=== PATIENT | female | born 1960 | race Caucasian/White ===

== ENCOUNTER → 2017-05-15 | Outpatient (CLI) | payer BC ==
--- NOTE | 2017-05-15 11:28 | DI ---
US SOFT TISSUE HEAD/NECK,05/15/2017 8:55 AM: Clinical History: Right thyroid mass Previous Exam: None at this facility. Findings: Multiple grayscale and color Doppler sonographic images are obtained through the thyroid. The right thyroid lobe measures 4.7 x 1.9 x 1.9 cm and contains a large complex mass measuring 2.9 x 2.9 x 1.5 cm containing multiple cystic components within the right thyroid lobe. The thyroid isthmus measured 4 mm. The left thyroid lobe measures 3.9 x 1.2 x 1.9 cm with a hypoechoic nodule within the inferior pole o f the left lobe measuring less than 1 cm. Impression: Large 2.9 x 2.9 x 1.5 cm mass within the right thyroid lobe containing multiple cystic components. Re commend fine needle aspiration for further evaluation.
== END ==
LOC: US 08:47
PROVIDERS: ATTEND Nurse Practitioner Family
DX: E04.9 Nontoxic goiter, unspecified (principal)
CPT/HCPCS: 76536

== ENCOUNTER → 2017-05-23 | Outpatient (CLI) | payer BC ==
--- NOTE | 2017-05-23 12:23 | GEN.OPNOTE ---
Operative Note Surgery Date: 05/23/17 Preoperative Diagnosis: Right thyroid mass-cyst. Postoperative Diagnosis: Same. Procedure: Right thyroid FNA with ultrasound guidance. Surgeon: Cristian Farah MD Anesthesia Type: Local (1% Xylocaine) Estimated Blood Loss (mL): 1 Fluids: None Pathology: 2 air dried slides, 2 slides in Cytotec, and a needle wash were sent for pathologic analysis. Indications: Enlarging right thyroid mass. Ultrasound shows this to be cystic but with multiple septations. Findings: Cyst. Collapsed after aspiration. Complications: None. Operative Summary: I met the patient in the ultrasound suite. The radiologist was present for localizing the nodule. The neck was prepped in a sterile fashion. The skin was infiltrated with 1% plain Xylocaine. After the nodule was located I used a 5 mL syringe and a 22 gauge needle. Under ultrasound guidance a needle was passed into the nodule. Suction was applied. The needle was moved back and forth through the nodule obtaining a specimen. The nodule was also cystic and collapsed. I then removed the needle from the neck and the radiologist held pressure for 10 minutes. After he held pressure he did an ultrasound to assure no hematoma formation. An appropriate dressing was placed. I personally prepared the slides. I prepared both CytoLyt as well as air dried slides. Needle wash was done in CytoLyt. All specimens were labeled appropriately. I prepared the pathologic report and personally delivered the specimen to the lab. Patient tolerated the procedure well without complication. Will call the results of biopsies when available. We will plan an exam and ultrasound in 6 months time. Sooner if the nodule recurs.
--- NOTE | 2017-05-23 12:55 | DI ---
ULTRASOUND GUIDED FINE NEEDLE ASPIRATION OF THE THYROID, 05/23/2017 11:37 AM: Clinical History: Abnormal thyroid ultrasound. There is a complex nodule in the right lobe of the thy roid gland. Previous Exam: 05/15/2017. Operating Surgeon: Dr. Cristian Farah. Roofing Applicator: Dr. Barnes. Informed signed consent was obtained in the doctor's office prior to the procedure. A "time out" sess ion was performed to verify the patient's name and date of prior to initiating this procedure. The neck was prepped with ChloraPrep with orange tint. Sterile gel was used as the acoustical couplin g agent. 1% lidocaine without epinephrine was used for intradermal and subcutaneous local anesthesia. The fine needle was inserted once using US for localization, and multiple passes were performed with the FNA needle in the fluid component was aspirated. These attempts resulted in slide specimens bein g obtained. The slide specimens were hand carried by the surgeon to the lab for delivery to the [facility] facility. Hemostasis was achieved with direct compression. The patient was discharged from the X-ray Department in stable, unchanged condition. The patient was advised to watch for signs of a developing hematoma (including but not limited to swelling and pain in the neck region) as well as for signs of an infect ion (including but not limited to redness, swelling, fever). She was instructed to either contact the surgeon directly or to report to the Emergency Room immediately if problems arose. Reading: Successful and uncomplicated fine needle aspiration of the right lobe of the thyroid gland.
== END ==
LOC: US 11:19
PROVIDERS: ATTEND Surgery
DX: E04.1 Nontoxic single thyroid nodule (principal)
CPT/HCPCS: 76942

== ENCOUNTER 2017-09-26 15:25 | Inpatient (IN) ==
[2017-09-26] MEDS ORDERED: ONDANSETRON 4 MG/2 ML VIAL IVP ONE (15:50)
[2017-09-26] MEDS ORDERED: Sodium Chloride 0.9% 1,000 ML PRIMARY IV ONE (15:50)
--- NOTE | 2017-09-26 15:56 | PDOC ---
General Adult HPI - General Chief Complaint: Accidental Ingestion /Overdose Stated Complaint: accidental overdose Date Seen by Provider: 09/26/17 Time Seen by Provider: 15:50 Source: POSITIVE: Patient, Spouse Exam Limitations: POSITIVE: No limitations Nurse's Notes Reviewed & Considered: Yes - History of Present Illness Initial Comment: Patient comes in today stating she has overdosed on Seroquel. Patient was found to be somnolent by her who was contacted by a neighbor because the patient was not answering knocking on the door or her phone. Patient states she thinks she took too many Seroquel during the night. 5 200 mg tablets are missing. Patient does have a history of suicidal ideation 9 years ago. She denies suicidal ideation at this time. She is hypotensive with a blood pressure systolic of 72. Have you received a tetanus shot in the past 10 years?: Unknown Timing: REPORTS: Unknown Duration: Unknown Severity: Moderate Context: DENIES: None, Sitting, Standing, Activity, Emotional stress, Coughing, Recent Trauma, Recent Surgery, Sleep, Rest, Lifting, Turning, Bending, Fall, Near Fall, Other Modifying Factors: worse with: Nothing, Analgesics, Antacids, Breathing, Coughing, Defecating, Vomiting, Eating, Exercise, Lying down, Urinating, Palpation, Movement, Rest, Upright Position, Walking, Remaining Still, Other Similar Symptoms Previously: No Recent Care Received: REPORTS: Denies Any Prior Injuries Related to Current Complaint?: No - Patient Home Medications Home Medications: Home Medications Clonazepam 1 tab PO QD 07/24/11 Gabapentin 800 mg PO QID PRN tab 10/20/13 Omeprazole 1 cap PO BID cap 09/17/16 Amlodipine Besylate 10 mg ORAL QD #90 tab 11/24/16 Losartan Potassium [Cozaar] 50 mg ORAL BID #180 tab 11/24/16 Tramadol HCl [Ultram] 2 tab PO Q6H tab 05/20/17 Desvenlafaxine Succinate [Pristiq] 100 mg ORAL QD #90 tab 07/17/17 Oxycodone HCl/Acetaminophen [Endocet 10-325 Mg Tablet] 1 tab PO Q6H PRN #0 tab 07/17/17 Quetiapine Fumarate [Seroquel Xr] 200 mg PO QD #90 tab 07/17/17 Spironolactone 25 mg ORAL QD #90 tab 07/17/17 methylPREDNISolone Dose Pack [Medrol Dose Pack] 1 tab PO ASDIR #1 packet - Patient Allergies Allergies/Adverse Reactions: Allergies 3 Allergy/AdvReac Type Severity Reaction Status Date / Time No Known Drug Allergies Allergy NOT Verified 09/26/17 16:00 APPLICABLE ROS - Limitations ROS Limitations: No Limitations Constitution: REPORTS: Denies Symptoms Cardiovascular: REPORTS: Denies Cardiac Symptoms Respiratory: REPORTS: Denies Resp Symptoms Neurological: REPORTS: Denies Neuro Symptoms Gastrointestinal: REPORTS: Denies GI Symptoms Endocrine: REPORTS: Denies Symptoms Musculoskeletal: REPORTS: Denies MS Symptoms Genitourinary: REPORTS: Denies Symptoms Eyes: REPORTS: Denies Symptoms ENT: REPORTS: Denies Symptoms Skin: REPORTS: Denies Skin Symptoms Lympathic: REPORTS: Denies Lympathic Symptoms Immunologic: POSITIVE: Denies Symptoms Psychiatric: POSITIVE: Denies Psych Symptoms General Adult Exam - General Appearance General Appearance: POSITIVE: Alert, Cooperative, No Acute Distress, No Evidence of Trauma - HEENT HEENT: POSITIVE: Head Inspection Nml, Eyes Inspection Nml, Ears Inspection Nml, Nose Inspection Nml, Oral/Dental Inspect. Nml, Pharynx Inspect. Nml, PERRL, EOMI - Pupils Pupil Size: 4 mm: Bilateral - Neck Neck: POSITIVE: Normal Inspection - Respiratory Respiratory: POSITIVE: No Respiratory Distress, Breath Sounds Normal, Chest Non- Tender - Cardiovascular Cardiovascular: POSITIVE: Regular Rate & Rhythm, No Murmur, No Gallop, PMI Normal Peripheral Pulses: Radial (R): 4+ - Abdomen Abdomen: Soft: (All Quadrants), Normal Bowel Sounds: (All Quadrants), Denies Tenderness: (All Quadrants), No Splenomegaly: (All Quadrants), No Hepatomegaly: (All Quadrants), No Guarding: (All Quadrants), No Rebound: (All Quadrants), No Palpable Pulse: (All Quadrants), No Palpabale Mass: (All Quadrants), No Distention: (All Quadrants), No Rigidity: (All Quadrants) - Skin Skin: POSITIVE: Normal Color, Warm, Dry, No Rash - Extremities Extremity: Non-Tender: (All Extremities), Normal ROM: (All Extremities), Normal Inspection: (All Extremities), Pelvis Stable: (All Extremities) - Neurological / Psychological Neurological: POSITIVE: Oriented X3, Motor Normal, Sensation Normal Procedures - Laceration/Wound Repair Did patient have a laceration repair: No General Adult Progress - Results Reviewed by me Lab Results Reviewed by Me: Yes CBC and BMP: 09/26/17 15:50 09/26/17 15:50 EKG Interpreted/Reviewed By Me:: Yes EKG Interpretation:: POSITIVE: Normal Sinus Rhythm - Patient's Progress Pain Medication Addressed: POSITIVE: Not Applicable Status: POSITIVE: Improved MDM / ED Course: Patient was evaluated, an IV started, a bolus of normal saline was provided, blood drawn and sent to the lab for studies. Findings: UDS positive for tricyclic antidepressants and narcotics. CBC is unremarkable, CMP is also unremarkable. Urinalysis is negative. Assessment: Drug overdose, probable SSRI. Plan: Admission for observation and symptomatic treatment. Quality Measure Initiative: CP/AMI: POSITIVE: EKG CVA/Syncope: POSITIVE: EKG - Consult Consult (If Yes, Name of Consulting MD & Time Called): Yes (Dr. Serrano 1552 hrs) Consulting MD will see pt:: POSITIVE: [facility] Admit Counseled: POSITIVE: Patient, Family, RE: Lab Results, RE: DX Patient Care Time - Estimated PCT Patient Care Time (In Minutes): 20 Vital Signs - Recent Vital Signs Vital Signs: Vital Signs (Last 8 hours) Temp Pulse Pulse Resp BP Pulse Ox 09/26/17 16:08 83 09/26/17 16:00 97.0 F 81 20 71/47 91 09/26/17 15:25 97.0 F 89 20 72/58 92 - VS Reviewed Vital Signs Reviewed: Yes Discharge Clinical Impression: Drug overdose Discharge Disposition: Admit to Observation Condition: Stable
--- NOTE | 2017-09-26 16:08 | EKG ---
[address] [address] Measurements Intervals [place] Rate: 83 P: 43 RI: 199 QRS: -12 QRSD: 85 T: 38 QT: 358 QTc: 398 Interpretive Statements SINUS RHYTHM MINIMAL VOLTAGE CRITERIA FOR LVH, CONSIDER NORMAL VARIANT [MEETS CRITERIA IN ONE OF: R(aVL), S(V1), R(V5), R(V5/V6)+S(V1)] POSSIBLE ANTERIOR MYOCARDIAL INFARCTION [30 ms Q WAVE IN V3/V4, OR R < 0.2 mV IN V4], OF INDETERMINATE AGE No previous ECG available for comparison Electronically Signed On 09-27-17 08:45:15 [facility] by Holger Shaw MD [email or web address]
[2017-09-26 16:12] LABS: Hemoglobin [HGB] 14.5 g/dL (12.0-16.0); MEAN CORPUSCULAR HEMOGLOBIN 30.6 PG (27-31); MEAN CORPUSCULAR HGB CONC 32.2 g/dL (33-37); MEAN CORPUSCULAR VOLUME 94.9 FL (81-99); MEAN PLATELET VOLUME 9.8 FL (7.4-12.2); RED BLOOD COUNT 4.74 10^6/uL (4.20-5.40)
[2017-09-26] MEDS ORDERED: NORMAL SALINE 10 ML SYRINGE FLUSH IVP PRN ×2 (16:14→17:26)
[2017-09-26 16:35] LABS: PLATELET MORPHOLOGY COMMENT NORMAL MORPHOLOGY (NORM); RBC MORPHOLOGY COMMENT NORMAL MORPHOLOGY (NORM); WBC MORPHOLOGY COMMENT NORMAL MORPHOLOGY (NORM)
[2017-09-26 16:36] LABS: BAND NEUTROPHILS % 0 % (0-10); BASOPHILS % (MANUAL) 0 % (0-1); BLOOD UREA NITROGEN 18 mg/dL (7-22); BUN/CREATININE RATIO 11.25 (6-20); EOSINOPHILS % (MANUAL) 0 % (0-8); MONOCYTES % (MANUAL) 4 % (0-12); NEUTROPHILS % (MANUAL) 85 % (50-80)
[2017-09-26] MEDS: Sodium Chloride 0.9% 1,000 ML PRIMARY IV SCH ×4 (17:00→21:19)
[2017-09-26] MEDS ORDERED: CALCIUM CARBONATE 500 MG (TUMS) CHEWABLE TABLET PO PRN (17:26)
[2017-09-26] MEDS ORDERED: ONDANSETRON 4 MG/2 ML VIAL IVP PRN (17:26)
[2017-09-26] MEDS ORDERED: DOCUSATE 100 MG CAPSULE PO PRN (17:26)
[2017-09-26] MEDS ORDERED: LIDOCAINE W/ SODIUM BICARB 0.5 ML SYR SUBD PRN (17:26)
--- NOTE | 2017-09-26 18:44 | EKG ---
[address] [address] Measurements Intervals [place] Rate: 71 P: 44 AR: 226 QRS: -9 QRSD: 87 T: 31 QT: 408 QTc: 431 Interpretive Statements SINUS RHYTHM WITH FIRST DEGREE AV BLOCK Compared to ECG 09/26/2017 16:08:25 First degree AV block now present Myocardial infarct finding no longer present Electronically Signed On 09-27-17 08:46:53 [facility] by Holger Shwa MD [email or web address]
[2017-09-26 19:22] LABS: BILIRUBIN,URINE NEGATIVE (NEG); CLARITY,URINE CLEAR (CLEAR); COLOR,URINE YELLOW (Y); GLUCOSE, URINE (UA) NEGATIVE (NEG); NITRATE,URINE NEGATIVE (NEG); OCCULT BLOOD,URINE NEGATIVE (NEG); PROTEIN,URINE 30 mg/dl (NEG); UROBILINOGEN,URINE 0.2 EU/dL (0.2)
[2017-09-26 19:27] LABS: SQUAMOUS EPITHELIAL CELL,UR MANY; URINE SAMPLE TYPE VOIDED SPECIMEN; WBC,URINE 0-2
[2017-09-26 19:28] LABS: AMPHETAMINE SCREEN NEGATIVE (NEG); CANNABINOID SCREEN,URINE NEGATIVE (NEG); COCAINE SCREEN NEGATIVE (NEG); METHADONE URINE SCREEN NEGATIVE (NEG); METHAMPHETAMINES SCREEN,URINE NEGATIVE (NEG); OPIATE SCREEN,URINE NEGATIVE (NEG)
[2017-09-26] MEDS: ACETAMINOPHEN 325 MG TABLET PO PRN (20:29)
[2017-09-26] MEDS: OMEPRAZOLE 10 MG PO SCH (21:19)
--- NOTE | 2017-09-26 22:30 | PDOC ---
HPI - History of Present Illness Date and Time of Service: 09/26/2017, 2226 Chief Complaint: Altered mental status History of Present Illness: This is a very pleasant 57-year-old female with a history of fibromyalgia, bipolar disorder, hypertension, who presents today accompanied with her after an accidental overdose on Seroquel and possibly other pills. The patient apparently has had some sleepwalking problems in the past, including an episode in which she poured Cheerios into a toaster, and maintain conversations with other people in the past. Reportedly, the patient was sleepwalking today and opened her bottle of Seroquel and took at least an extra 5 pills. She was very confused, and disoriented, and although people tried to get to her she could not answer the door. She has never been this confused or disoriented after medications before. She stated that she felt like she was in a fog. There were no fevers, chills, nausea or vomiting. She was quite hypotensive on admission to emergency room with systolic blood pressures in the 70s. She was also requiring oxygen which is not typical for her. Further history reveals that the patient may have significant sleeping issues and that she falls asleep quite frequently and very suddenly during normal activities. Reviewing her medication shows that she is on several opiate medications and centrally acting agents, none of which have indications for treatment of fibromyalgia. She states her fibromyalgia is manifested in back pain, joint pains, and occasional nerve pains. She does not follow with a stitcher operator. She saw someone at [facility] over 20 years ago who made the diagnosis of fibromyalgia. She has not seen her primary care provider in over 2 years, although she recently saw her nurse practitioner. She seems to refilling much better after fluids and monitoring today. EKGs do not show any prolongation of QT times. Past Medical History Medical History: 1. Possible fibromyalgia. 2. Hypertension. 3. Bipolar disorder. 4. GERD. 5. Based on my history, the patient has had some sort of sleep disorder for some time. Surgical History: 1. Bilateral oophorectomy per graph 2. Cholecystectomy. 3. Colonoscopy. 4. Hysterectomy Pertinent Family History: No significant family history of heart disease. 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 Does not smoke or drink alcohol. Tobacco Use: Never Smoker In the Past 12 Months, Have Used or Abuse Any of the Following Substance: None Alcohol Use: None Medication / Allergies Home Medications: Home Medications Medication Instructions Recorded Confirmed Type Clonazepam 1 tab PO QD 07/24/11 09/26/17 History Gabapentin 800 mg PO QID PRN tab 10/20/13 09/26/17 History Omeprazole 1 cap PO BID cap 09/17/16 09/26/17 History Amlodipine Besylate 10 mg ORAL QD #90 tab 11/24/16 09/26/17 Rx Losartan Potassium [Cozaar] 50 mg ORAL BID #180 tab 11/24/16 09/26/17 Rx Tramadol HCl [Ultram] 2 tab PO Q6H tab 05/20/17 09/26/17 History Desvenlafaxine Succinate [Pristiq] 100 mg ORAL QD #90 tab 07/17/17 09/26/17 Clinic Oxycodone HCl/Acetaminophen 1 tab PO Q6H PRN #0 tab 07/17/17 09/26/17 History [Endocet 10-325 Mg Tablet] Quetiapine Fumarate [Seroquel Xr] 200 mg PO QD #90 tab 07/17/17 09/26/17 Clinic Spironolactone 25 mg ORAL QD #90 tab 07/17/17 09/26/17 Clinic methylPREDNISolone Dose Pack 1 tab PO ASDIR #1 packet 07/18/17 09/26/17 Clinic [Medrol Dose Pack] Allergies/Adverse Reactions: Allergies 3 Allergy/AdvReac Type Severity Reaction Status Date / Time No Known Drug Allergies Allergy NOT Verified 09/26/17 16:00 APPLICABLE Review of Systems - Review of Systems All Systems: Reviewed & No Additional Complaints Except as Stated (I did a 12 point review systems and it was negative except for the history of present illness and that noted below.) - Constitutional Constitutional: REPORTS: Diffuse Arthralgias, Diffuse Myalgias - Cardiovascular Cardiovascular: REPORTS: Negative System Review - Gastrointestinal Gastrointestinal / Abdominal: REPORTS: Negative System Review - Musculoskeletal Musculoskeletal: REPORTS: Joint Pain - Hands - Neurological Neurologic: REPORTS: Negative System Review - Psychiatric Psychiatric: REPORTS: Other (Denies suicidal or homicidal ideation. States that she has bipolar with predominant mood depression. States that she did very well and she had counseling in the past) - Additonal Details Additional ROS Details: The patient has been under the impression that the medications that she has been on, despite significant potential for interaction in the brain and central nervous system, are completely safe because they are prescribed. Exam - Vitals Vital Signs: Vital Signs Temperature 98.1 F Temperature Source Oral Pulse Rate [Pulse Oximeter] 82 Respiratory Rate 18 Blood Pressure [Right Arm] 115/59 Pulse Ox 93 Oxygen Flow Rate 5 Oxygen Delivery Method Nasal Cannula Height 5 ft 4 in Weight 202 lb 6.4 oz - General General Appearance: No Acute Distress (At the time of my exam, no acute distress , hypotensive but not symptomatic. She was significantly better in terms of her mental status by the time I evaluated her.), Cooperative - Head Head Exam: Normal Inspection, Normocephalic, Atraumatic - Eye Eye Exam: POSITIVE: EOMI, No Scleral Icterus - ENT ENT Exam: POSITIVE: Mucous Membranes Moist - Neck Neck Exam: Normal Inspection, No Tenderness, No Lymphadenopathy, No Thyromegaly - Respiratory Respiratory Exam: POSITIVE: Clear to Auscultation - Bilaterally, Breathing Non Labored, Normal to Percussion and Palpation - Cardiovascular Cardiovascular Exam: POSITIVE: RRR, No Murmur, No Clicks, No Gallops, No Rubs, No JVD - GI/Abdominal GI/Abdominal Exam: POSITIVE: Normal Bowel Sounds, Non Tender, Non Distended, Soft - Rectal Rectal Exam: POSITIVE: Deferred - External Exam: POSITIVE: Deferred Exam: POSITIVE: Deferred - Extremities Extremities Exam: POSITIVE: No Clubbing Present, No Edema Present, No Cyanosis Present - Back Back Exam: POSITIVE: No CVA Tenderness - Neurological Neurological Exam: POSITIVE: Alert, Oriented x 3, No Facial Droop, Speech Intact / Clear, Moves All Extremities Equally - Psychiatric Psychiatric Exam: POSITIVE: Normal Affect, Normal Mood - Integumentary Integumentary Exam: POSITIVE: Normal Color, Warm, Dry, Intact - Central Line Examination Central Line Present on Admission: No Results - Labs CBC and BMP: 09/26/17 15:50 09/26/17 15:50 Additional Lab Results: Laboratory Results 09/26/17 09/26/17 09/26/17 Range/Units 15:50 15:50 15:50 WBC 11.15 H (4.8-10.8) 10^3/uL RBC 4.74 (4.20-5.40) 10^6/uL Hgb 14.5 (12.0-16.0) g/dL Hct 45.0 (37.0-47.0) % MCV 94.9 (81-99) FL MCH 30.6 (27-31) PG MCHC 32.2 L (33-37) g/dL RDW Std Deviation 44.7 (39-50) fL RDW Coeff of Laura 13.3 (11.5-14.5) % Plt Count 302 (140-350) 10*3/uL MPV 9.8 (7.4-12.2) FL Neutrophils % (Manual) 85 H (50-80) % Band Neutrophils % 0 (0-10) % Lymphocytes % (Manual) 11 (10-50) % Monocytes % (Manual) 4 (0-12) % Eosinophils % (Manual) 0 (0-8) % Basophils % (Manual) 0 (0-1) % Metamyelocytes % Not Reportable Myelocytes % Not Reportable Promyelocytes % Not Reportable Blast Cells Not Reportable WBC Morphology Comment Normal morphology (NORM) Plt Morphology Comment Normal morphology (NORM) RBC Morph Comment Normal morphology (NORM) Sodium 142 (135-145) meq/L Potassium 4.5 (3.8-5.2) meq/L Chloride 104 (98-112) meq/L Carbon Dioxide 26 (23-33) meq/L Anion Gap 12 (5-20) BUN 18 (7-22) mg/dL Creatinine 1.6 H (0.50-1.20) mg/dL Estimated GFR 33 (>60 ml/min/1.73m(2)) BUN/Creatinine Ratio 11.25 (6-20) Glucose 131 H (78-110) mg/dL Calculated Osmolality 297.0 H (267-292) mOsm/kg Lactic Acid 1.9 (0.70-2.10) MMOL/L Calcium 9.5 (8.7-10.7) mg/dL Magnesium 2.0 (1.6-2.4) mg/dL Total Bilirubin 0.4 (0.3-1.2) mg/dL AST 28 (8-39) IU/L ALT 27 (9-52) IU/L Alkaline Phosphatase 87 (38-126) IU/L Total Protein 8.0 (6.1-8.0) g/dL Albumin 4.0 (3.5-4.8) g/dL Globulin 4.0 (2.50-4.10) g/dL Albumin/Globulin Ratio 1.00 L (1.3-2.0) mg/g TSH 1.23 (0.2700-4.2000) uIU/mL Ur Collection Type Urine Color (Y) Urine Clarity (CLEAR) Urine pH (5.0-8.5) Ur Specific [place] (1.005-1.030) U Specif Grav (Refrac) Urine Protein (NEG) mg/dl Urine Glucose (UA) (NEG) mg/dL Urine Ketones (NEG) Urine Occult Blood (NEG) Urine Nitrate (NEG) Urine Bilirubin (NEG) Urine Urobilinogen (0.2) EU/dL Ur Leukocyte Esterase (NEG) Urine RBC (NONE) /hpf Urine WBC (NONE) Ur Squamous Epith Cells (NONE) Ur Renal Epithelial Cell (NONE) Urine Crystals Urine Bacteria (NONE) Urine Casts (NONE) Urine Mucus (NONE) Urine Trichomonas (NONE) Urine Yeast (NONE) Ur Culture Indicated? Urine Opiates Screen (NEG) Ur Buprenorphine (NEG) Ur Oxycodone Screen (NEG) Urine Methadone Screen (NEG) Ur Propoxyphene Screen (NEG) Barbiturate Screen (NEG) U Tricyclic Antidepress (NEG) Phencyclidine Screen (NEG) Amphetamines Screen (NEG) U Methamphetamines Scrn (NEG) Benzodiazepines Screen (NEG) Cocaine Screen (NEG) U Marijuana (THC) Screen (NEG) Serum Alcohol < 10 (0-10) mg/dL 09/26/17 Range/Units 19:08 WBC (4.8-10.8) 10^3/uL RBC (4.20-5.40) 10^6/uL Hgb (12.0-16.0) g/dL Hct (37.0-47.0) % MCV (81-99) FL MCH (27-31) PG MCHC (33-37) g/dL RDW Std Deviation (39-50) fL RDW Coeff of Laura (11.5-14.5) % Plt Count (140-350) 10*3/uL MPV (7.4-12.2) FL Neutrophils % (Manual) (50-80) % Band Neutrophils % (0-10) % Lymphocytes % (Manual) (10-50) % Monocytes % (Manual) (0-12) % Eosinophils % (Manual) (0-8) % Basophils % (Manual) (0-1) % Metamyelocytes % Myelocytes % Promyelocytes % Blast Cells WBC Morphology Comment (NORM) Plt Morphology Comment (NORM) RBC Morph Comment (NORM) Sodium (135-145) meq/L Potassium (3.8-5.2) meq/L Chloride (98-112) meq/L Carbon Dioxide (23-33) meq/L Anion Gap (5-20) BUN (7-22) mg/dL Creatinine (0.50-1.20) mg/dL Estimated GFR (>60 ml/min/1.73m(2)) BUN/Creatinine Ratio (6-20) Glucose (78-110) mg/dL Calculated Osmolality (267-292) mOsm/kg Lactic Acid (0.70-2.10) MMOL/L Calcium (8.7-10.7) mg/dL Magnesium (1.6-2.4) mg/dL Total Bilirubin (0.3-1.2) mg/dL AST (8-39) IU/L ALT (9-52) IU/L Alkaline Phosphatase (38-126) IU/L Total Protein (6.1-8.0) g/dL Albumin (3.5-4.8) g/dL Globulin (2.50-4.10) g/dL Albumin/Globulin Ratio (1.3-2.0) mg/g TSH (0.2700-4.2000) uIU/mL Ur Collection Type Voided specimen Urine Color Yellow (Y) Urine Clarity Clear (CLEAR) Urine pH 6.0 (5.0-8.5) Ur Specific [place] 1.020 (1.005-1.030) U Specif Grav (Refrac) 1.020 Urine Protein 30 A (NEG) mg/dl Urine Glucose (UA) Negative (NEG) mg/dL Urine Ketones Negative (NEG) Urine Occult Blood Negative (NEG) Urine Nitrate Negative (NEG) Urine Bilirubin Negative (NEG) Urine Urobilinogen 0.2 (0.2) EU/dL Ur Leukocyte Esterase Negative (NEG) Urine RBC None (NONE) /hpf Urine WBC 0-2 (NONE) Ur Squamous Epith Cells Many (NONE) Ur Renal Epithelial Cell None (NONE) Urine Crystals None Urine Bacteria None (NONE) Urine Casts None (NONE) Urine Mucus None (NONE) Urine Trichomonas None (NONE) Urine Yeast None (NONE) Ur Culture Indicated? Culture not set Urine Opiates Screen Negative (NEG) Ur Buprenorphine Negative (NEG) Ur Oxycodone Screen Positive H (NEG) Urine Methadone Screen Negative (NEG) Ur Propoxyphene Screen Negative (NEG) Barbiturate Screen Negative (NEG) U Tricyclic Antidepress Positive H (NEG) Phencyclidine Screen Negative (NEG) Amphetamines Screen Negative (NEG) U Methamphetamines Scrn Negative (NEG) Benzodiazepines Screen Negative (NEG) Cocaine Screen Negative (NEG) U Marijuana (THC) Screen Negative (NEG) Serum Alcohol (0-10) mg/dL - EKG Data -: EKG Interpreted by Me Rate: Normal EKG Shows Normal: Sinus Rhythm - EKG Data When Compared to Previous EKG(s) There Are: No Significant Change Assessment and Plan - Patient Problems (1) Drug overdose Current Visit: Yes Status: Acute Code(s): T50.901A - Poisoning by unspecified drugs, medicaments and biological substances, accidental ( unintentional), initial encounter (2) Polypharmacy Current Visit: Yes Status: Acute Code(s): Z79.899 - Other long term care administrator (current ) drug therapy (3) Fibromyalgia Current Visit: Yes Status: Acute Code(s): M79.7 - Fibromyalgia (4) Bipolar disorder Current Visit: Yes Status: Acute Code(s): F31.9 - Bipolar disorder, unspecified Qualifiers: Active/Remission status: currently active Current bipolar episode type: hypomanic Qualified Code(s): F31.0 - Bipolar disorder, current episode hypomanic (5) Hypertension Current Visit: Yes Status: Acute Code(s): I10 - Essential (primary) hypertension Qualifiers: Hypertension type: essential hypertension Qualified Code(s): I10 - Essential (primary) hypertension (6) Sleep disorder Current Visit: Yes Status: Acute Code(s): G47.9 - Sleep disorder, unspecified - Assessment / Plan Additional Assessment/Plan Details: This is a complex, unintentional drug overdose in which the patient felt that her medications were safe in the setting of prescriptions from physicians, but she is on at least 6 central acting agents, none of which have indications for fibromyalgia. She had 2 systems involved, including the central nervous system with confusion and altered mental status as well as her vascular system with hypotension. Likely no QT prolongation, and responding to fluids. Admit the patient, continue IV fluids, hold these medications, I spoke to her at length about how I think she should get off of several of them and perhaps have a rheumatology evaluation for a thorough look at fibromyalgia. I will continue the benzodiazepine as I do not want to see the patient go through benzodiazepine withdrawal acutely. I think the patient needs a sleep study done, we will order that. She may have some sort of narcolepsy based on her description of symptoms and her sleepwalking problems. I encouraged the patient to improve her diet and switch to an organic, non- processed diet, and seek alternative means for pain control and her fibromyalgia , including but not limited to massage, chiropractic therapy, osteopathic manipulative therapy, acupuncture which she's done in the past, yoga, biofeedback, and also seek therapy for her bipolar disorder. She stated counseling was a significant help in the past. In terms of her bipolar disorder, she would benefit from a mood stabilizer versus an antipsychotic. She probably should not go back on Seroquel. I discussed these issues in detail, will repeat EKG in a.m., check labs in a.m. , and hopefully if patient overcome symptoms of overdose, we can look at potential discharge tomorrow. I admitted her inpatient because of the potentiality that this was some sort of suicidal gesture, but I think after history and physical that has been ruled out. The patient denies these symptoms. She still high risk but with potential to recover fairly quickly in terms of her unintentional overdose.
[2017-09-27] MEDS: ACETAMINOPHEN 325 MG TABLET PO PRN (03:01)
[2017-09-27] MEDS: Sodium Chloride 0.9% 1,000 ML PRIMARY IV SCH (05:32)
[2017-09-27 06:44] LABS: BASOPHILS # (AUTO) 0.03 10*3/UL; BASOPHILS % (AUTO) 0.3 % (0-1); EOSINOPHILS # (AUTO) 0.12 10*3/UL; EOSINOPHILS % (AUTO) 1.2 % (0-8); Hematocrit [HCT] 39.2 % (37.0-47.0); Hemoglobin [HGB] 12.3 g/dL (12.0-16.0); LYMPHOCYTES # (AUTO) 1.58 10*3/uL; MEAN CORPUSCULAR HEMOGLOBIN 30.2 PG (27-31); MEAN CORPUSCULAR HGB CONC 31.4 g/dL (33-37); MEAN CORPUSCULAR VOLUME 96.3 FL (81-99); MEAN PLATELET VOLUME 10.2 FL (7.4-12.2); MONOCYTES # (AUTO) 0.76 10*3/UL (0.3-0.8); MONOCYTES % (AUTO) 7.6 % (5-15); NEUTROPHILS # (AUTO) 7.51 10*3/UL; NEUTROPHILS % (AUTO) 74.9 % (50-80); RED BLOOD COUNT 4.07 10^6/uL (4.20-5.40)
[2017-09-27 06:48] LABS: PLATELET MORPHOLOGY COMMENT NORMAL MORPHOLOGY (NORM); RBC MORPHOLOGY COMMENT NORMAL MORPHOLOGY (NORM); WBC MORPHOLOGY COMMENT NORMAL MORPHOLOGY (NORM)
[2017-09-27 07:13] LABS: BLOOD UREA NITROGEN 15 mg/dL (7-22); BUN/CREATININE RATIO 18.75 (6-20); SERUM ALBUMIN 3.3 g/dL (3.5-4.8)
--- NOTE | 2017-09-27 07:46 | EKG ---
[address] [address] Measurements Intervals [place] Rate: 67 P: 59 [place]: 226 QRS: 29 QRSD: 80 T: 58 QT: 400 QTc: 416 Interpretive Statements SINUS RHYTHM WITH MARKED SINUS ARRHYTHMIA WITH FIRST DEGREE AV BLOCK Compared to ECG 09/26/2017 18:45:06 No significant changes Electronically Signed On 09-27-17 08:48:32 MST by Holger Shaw MD [email or web address]
[2017-09-27] MEDS: OMEPRAZOLE 10 MG PO SCH (09:00)
[2017-09-27] MEDS ORDERED: ClonazePAM Tab 1 MG TABLET PO SCH (09:00)
[2017-09-27] MEDS ORDERED: OMEPRAZOLE 20 MG CAPSULE PO ONE (09:30)
[2017-09-27] MEDS ORDERED: Prenatal Multivitamin Tab 1 TAB TAB PO ONE (09:43)
[2017-09-27] MEDS ORDERED: ClonazePAM Tab 1 MG TABLET PO ONE (10:00)
[2017-09-27 12:49] VITALS: BP 129/77; RESP 16; TEMP 97.7; O2SAT 90
[2017-09-27] MEDS ORDERED: Influenza 17-18 Vaccine (6mo+) Quad 60mcg/0.5ml PF IM ONE (13:34)
--- NOTE | 2017-09-27 14:15 | DCSUMMARY ---
Hospitalization Summary Admit Date: 09/26/17 Discharge Date: 09/27/17 Primary Diagnosis:: unintentional drug overdose. Secondary Diagnosis:: Resolved hypotension. Resolved renal failure, acute and prerenal. Resolved confusion Hospital Course: This very pleasant 57-year-old female who has a history of fibromyalgia and bipolar disorder with mostly depressive episodes, who came in after having a sleep walking episode in which she took excessive Seroquel. She is admitted with confusion, hypertension, and renal failure, and these all resolved with IV fluids, cessation of Seroquel, holding medications to avoid any excessive hypotension episodes, and by the next day, patient was ambulatory, had no evidence of any prolonged QT syndrome, resolved confusion, normal renal function , and no hypotension. 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 I talked her a lot about risk of overdose with her medications. I also talked to her about other alternative therapies for fibromyalgia including biofeedback mechanisms, manipulation, massage, and increased dietary changes. I recommended organic and vegetable laden diet with at least 50% of food intake to be vegetables. Today, she denies any chest pain, shortness breath, nausea or vomiting. I made several recommendations and discharge instructions part of the plan. Patient is ready to go home. Assessment and Plan: 1. As per discharge assessments noted 2. Disposition: Patient is discharged home. 3. Condition on discharge, stable and improved. 4. Diet: regular diet, increase vegetable intake 5. Activities: resume normal activities 6. Follow-Up: 1. Dr. Escobar next week 2. 7. Medications at the Time of Discharge: Home Medications Medication Instructions Recorded Confirmed Type Clonazepam 1 tab PO QD 07/24/11 09/26/17 History Gabapentin 800 mg PO QID PRN tab 10/20/13 09/26/17 History Amlodipine Besylate 10 mg ORAL QD #90 tab 11/24/16 09/26/17 Rx Losartan Potassium [Cozaar] 50 mg ORAL BID #180 tab 11/24/16 09/26/17 Rx Tramadol HCl [Ultram] 2 tab PO Q6H tab 05/20/17 09/26/17 History Desvenlafaxine Succinate [Pristiq] 100 mg ORAL QD #90 tab 07/17/17 09/26/17 Clinic Spironolactone 25 mg ORAL QD #90 tab 07/17/17 09/26/17 Clinic 8. Time, care, counseling and coordination of care for this discharge is greater than 30 minutes. Exam - Vitals Vital Signs: Vital Signs Temperature 97.7 F Temperature Source Temporal Artery Scan Pulse Rate [Pulse Oximeter] 66 Pulse Rate 84 Respiratory Rate 16 Blood Pressure [Right Arm] 129/77 Pulse Ox 90 Oxygen Flow Rate 3 Oxygen Delivery Method Room Air Height 5 ft 4 in Weight 207 lb 4 oz She is on room air on my exam. - General General Appearance: No Acute Distress, Cooperative - Head Head Exam: Normal Inspection, Normocephalic, Atraumatic - Eye Eye Exam: POSITIVE: No Scleral Icterus - ENT ENT Exam: POSITIVE: Mucous Membranes Moist - Respiratory Respiratory Exam: POSITIVE: Clear to Auscultation - Bilaterally, Breathing Non Labored - Cardiovascular Cardiovascular Exam: POSITIVE: RRR, No Murmur, No Clicks, No Gallops, No Rubs, No JVD - GI/Abdominal GI/Abdominal Exam: POSITIVE: Normal Bowel Sounds, Non Tender, Non Distended, Soft - Extremities Extremities Exam: POSITIVE: No Clubbing Present, No Edema Present, No Cyanosis Present - Neurological Neurological Exam: POSITIVE: Alert, Oriented x 3, Normal Gait, No Facial Droop, Speech Intact / Clear, Moves All Extremities Equally Data Perinent Studies: Laboratory Results 09/26/17 09/26/17 09/26/17 Range/Units 15:50 15:50 15:50 WBC 11.15 H (4.8-10.8) 10^3/uL RBC 4.74 (4.20-5.40) 10^6/uL Hgb 14.5 (12.0-16.0) g/dL Hct 45.0 (37.0-47.0) % MCV 94.9 (81-99) FL MCH 30.6 (27-31) PG MCHC 32.2 L (33-37) g/dL RDW Std Deviation 44.7 (39-50) fL RDW Coeff of Laura 13.3 (11.5-14.5) % Plt Count 302 (140-350) 10*3/uL MPV 9.8 (7.4-12.2) FL Immature Gran % (Auto) (0-5) % Neut % (Auto) (50-80) % Lymph % (Auto) (10-50) % [place] % (Auto) (5-15) % Eos % (Auto) (0-8) % Baso % (Auto) (0-1) % Immature Gran # (Auto) 10*3/UL Neut # (Auto) 10*3/UL Lymph # (Auto) 10*3/uL [place] # (Auto) (0.3-0.8) 10*3/UL Eos # (Auto) 10*3/UL Baso # (Auto) 10*3/UL Neutrophils % (Manual) 85 H (50-80) % Band Neutrophils % 0 (0-10) % Lymphocytes % (Manual) 11 (10-50) % Monocytes % (Manual) 4 (0-12) % Eosinophils % (Manual) 0 (0-8) % Basophils % (Manual) 0 (0-1) % Metamyelocytes % Not Reportable Myelocytes % Not Reportable Promyelocytes % Not Reportable Blast Cells Not Reportable WBC Morphology Comment Normal morphology (NORM) Plt Morphology Comment Normal morphology (NORM) RBC Morph Comment Normal morphology (NORM) Sodium 142 (135-145) meq/L Potassium 4.5 (3.8-5.2) meq/L Chloride 104 (98-112) meq/L Carbon Dioxide 26 (23-33) meq/L Anion Gap 12 (5-20) BUN 18 (7-22) mg/dL Creatinine 1.6 H (0.50-1.20) mg/dL Estimated GFR 33 (>60 ml/min/1.73m(2)) BUN/Creatinine Ratio 11.25 (6-20) Glucose 131 H (78-110) mg/dL Calculated Osmolality 297.0 H (267-292) mOsm/kg Lactic Acid 1.9 (0.70-2.10) MMOL/L Calcium 9.5 (8.7-10.7) mg/dL Magnesium 2.0 (1.6-2.4) mg/dL Total Bilirubin 0.4 (0.3-1.2) mg/dL AST 28 (8-39) IU/L ALT 27 (9-52) IU/L Alkaline Phosphatase 87 (38-126) IU/L Total Protein 8.0 (6.1-8.0) g/dL Albumin 4.0 (3.5-4.8) g/dL Globulin 4.0 (2.50-4.10) g/dL Albumin/Globulin Ratio 1.00 L (1.3-2.0) mg/g TSH 1.23 (0.2700-4.2000) uIU/mL Ur Collection Type Urine Color (Y) Urine Clarity (CLEAR) Urine pH (5.0-8.5) Ur Specific [place] (1.005-1.030) U Specif Grav (Refrac) Urine Protein (NEG) mg/dl Urine Glucose (UA) (NEG) mg/dL Urine Ketones (NEG) Urine Occult Blood (NEG) Urine Nitrate (NEG) Urine Bilirubin (NEG) Urine Urobilinogen (0.2) EU/dL Ur Leukocyte Esterase (NEG) Urine RBC (NONE) /hpf Urine WBC (NONE) Ur Squamous Epith Cells (NONE) Ur Renal Epithelial Cell (NONE) Urine Crystals Urine Bacteria (NONE) Urine Casts (NONE) Urine Mucus (NONE) Urine Trichomonas (NONE) Urine Yeast (NONE) Ur Culture Indicated? Urine Opiates Screen (NEG) Ur Buprenorphine (NEG) Ur Oxycodone Screen (NEG) Urine Methadone Screen (NEG) Ur Propoxyphene Screen (NEG) Barbiturate Screen (NEG) U Tricyclic Antidepress (NEG) Phencyclidine Screen (NEG) Amphetamines Screen (NEG) U Methamphetamines Scrn (NEG) Benzodiazepines Screen (NEG) Cocaine Screen (NEG) U Marijuana (THC) Screen (NEG) Serum Alcohol < 10 (0-10) mg/dL 09/26/17 09/27/17 09/27/17 Range/Units 19:08 05:14 05:14 WBC 10.02 (4.8-10.8) 10^3/uL RBC 4.07 L (4.20-5.40) 10^6/uL Hgb 12.3 (12.0-16.0) g/dL Hct 39.2 (37.0-47.0) % MCV 96.3 (81-99) FL MCH 30.2 (27-31) PG MCHC 31.4 L (33-37) g/dL RDW Std Deviation 44.9 (39-50) fL RDW Coeff of Laura 13.0 (11.5-14.5) % Plt Count 235 (140-350) 10*3/uL MPV 10.2 (7.4-12.2) FL Immature Gran % (Auto) 0.2 (0-5) % Neut % (Auto) 74.9 (50-80) % Lymph % (Auto) 15.8 (10-50) % [place] % (Auto) 7.6 (5-15) % Eos % (Auto) 1.2 (0-8) % Baso % (Auto) 0.3 (0-1) % Immature Gran # (Auto) 0.02 10*3/UL Neut # (Auto) 7.51 10*3/UL Lymph # (Auto) 1.58 10*3/uL [place] # (Auto) 0.76 (0.3-0.8) 10*3/UL Eos # (Auto) 0.12 10*3/UL Baso # (Auto) 0.03 10*3/UL Neutrophils % (Manual) (50-80) % Band Neutrophils % (0-10) % Lymphocytes % (Manual) (10-50) % Monocytes % (Manual) (0-12) % Eosinophils % (Manual) (0-8) % Basophils % (Manual) (0-1) % Metamyelocytes % Myelocytes % Promyelocytes % Blast Cells WBC Morphology Comment Normal morphology (NORM) Plt Morphology Comment Normal morphology (NORM) RBC Morph Comment Normal morphology (NORM) Sodium 144 (135-145) meq/L Potassium 4.1 (3.8-5.2) meq/L Chloride 112 (98-112) meq/L Carbon Dioxide 23 (23-33) meq/L Anion Gap 9 (5-20) BUN 15 (7-22) mg/dL Creatinine 0.8 (0.50-1.20) mg/dL Estimated GFR > 60 (>60 ml/min/1.73m(2)) BUN/Creatinine Ratio 18.75 (6-20) Glucose 81 (78-110) mg/dL Calculated Osmolality 297.0 H (267-292) mOsm/kg Lactic Acid (0.70-2.10) MMOL/L Calcium 8.5 L (8.7-10.7) mg/dL Magnesium (1.6-2.4) mg/dL Total Bilirubin 0.3 (0.3-1.2) mg/dL AST 26 (8-39) IU/L ALT 24 (9-52) IU/L Alkaline Phosphatase 68 (38-126) IU/L Total Protein 6.7 (6.1-8.0) g/dL Albumin 3.3 L (3.5-4.8) g/dL Globulin 3.4 (2.50-4.10) g/dL Albumin/Globulin Ratio 0.90 L (1.3-2.0) mg/g TSH (0.2700-4.2000) uIU/mL Ur Collection Type Voided specimen Urine Color Yellow (Y) Urine Clarity Clear (CLEAR) Urine pH 6.0 (5.0-8.5) Ur Specific [place] 1.020 (1.005-1.030) U Specif Grav (Refrac) 1.020 Urine Protein 30 A (NEG) mg/dl Urine Glucose (UA) Negative (NEG) mg/dL Urine Ketones Negative (NEG) Urine Occult Blood Negative (NEG) Urine Nitrate Negative (NEG) Urine Bilirubin Negative (NEG) Urine Urobilinogen 0.2 (0.2) EU/dL Ur Leukocyte Esterase Negative (NEG) Urine RBC None (NONE) /hpf Urine WBC 0-2 (NONE) Ur Squamous Epith Cells Many (NONE) Ur Renal Epithelial Cell None (NONE) Urine Crystals None Urine Bacteria None (NONE) Urine Casts None (NONE) Urine Mucus None (NONE) Urine Trichomonas None (NONE) Urine Yeast None (NONE) Ur Culture Indicated? Culture not set Urine Opiates Screen Negative (NEG) Ur Buprenorphine Negative (NEG) Ur Oxycodone Screen Positive H (NEG) Urine Methadone Screen Negative (NEG) Ur Propoxyphene Screen Negative (NEG) Barbiturate Screen Negative (NEG) U Tricyclic Antidepress Positive H (NEG) Phencyclidine Screen Negative (NEG) Amphetamines Screen Negative (NEG) U Methamphetamines Scrn Negative (NEG) Benzodiazepines Screen Negative (NEG) Cocaine Screen Negative (NEG) U Marijuana (THC) Screen Negative (NEG) Serum Alcohol (0-10) mg/dL Patient Problems - Patient Problem List (1) Drug overdose Current Visit: Yes Status: Acute Code(s): T50.901A - Poisoning by unspecified drugs, medicaments and biological substances, accidental ( unintentional), initial encounter Category: Medical (2) Polypharmacy Current Visit: Yes Status: Acute Code(s): Z79.899 - Other terminal system operator (current ) drug therapy Category: Medical (3) Fibromyalgia Current Visit: Yes Status: Acute Code(s): M79.7 - Fibromyalgia Category: Medical (4) Bipolar disorder Current Visit: Yes Status: Acute Code(s): F31.9 - Bipolar disorder, unspecified Qualifiers: Active/Remission status: currently active Current bipolar episode type: hypomanic Qualified Code(s): F31.0 - Bipolar disorder, current episode hypomanic Category: Medical (5) Hypertension Current Visit: Yes Status: Acute Code(s): I10 - Essential (primary) hypertension Qualifiers: Hypertension type: essential hypertension Qualified Code(s): I10 - Essential (primary) hypertension Category: Medical (6) Sleep disorder Current Visit: Yes Status: Acute Code(s): G47.9 - Sleep disorder, unspecified Category: Medical (7) Acute renal failure Current Visit: Yes Status: Resolved Code(s): N17.9 - Acute kidney failure, unspecified Qualifiers: Acute renal failure type: unspecified Qualified Code(s): N17.9 - Acute kidney failure, unspecified Category: Medical
== END 2017-09-27 14:43 | disposition home or self-care (01) | DRG 918 ==
LOC: ER 15:25 → MED/SURG 16:12
PROVIDERS: ADMIT Family Medicine; ATTEND Family Medicine